=== PATIENT | female | born 1985 | race African-American/Black ===

== ENCOUNTER 2016-07-22 19:58 | Emergency (ER) | payer OTHER ==
[~2016-07-22] VITALS: Ht 160 cm; Wt 68.0 kg
[2016-07-22 20:30] VITALS: BP 120/76
--- NOTE | 2016-07-22 20:48 | PHYS DOC ---
Adult General Chief Complaint Chief Complaint: FOOT INJURY PAIN HPI HPI Patient is a 30 year old female since emergency department stating that she was playing kick ball tonight when she went to run dip in the concrete. She states that she caught her foot in the dental and fell. She is complaining of foot pain and ankle pain and discomfort. She states that she has increased pain with trying to bear weight. She denies any numbness or tingling into the toes. She states that she has not taken anything for pain and discomfort. Review of Systems Review of Systems Constitutional: Denies fever or chills [] Eyes: Denies change in visual acuity, redness, or eye pain [] HENT: Denies nasal congestion or sore throat [] Respiratory: Denies cough or shortness of breath [] Cardiovascular: No additional information not addressed in HPI [] GI: Denies abdominal pain, nausea, vomiting, bloody stools or diarrhea [] : Denies dysuria or hematuria [] Musculoskeletal: Denies back pain. C/o right ankle/foot pain Integument: Denies rash or skin lesions [] Neurologic: Denies headache, focal weakness or sensory changes [] Endocrine: Denies polyuria or polydipsia [] Physical Exam Physical Exam Constitutional: Well developed, well nourished, no acute distress, non-toxic appearance. [] HENT: Normocephalic, atraumatic, bilateral external ears normal, oropharynx moist, no oral exudates, nose normal. [] Eyes: PERRLA, EOMI, conjunctiva normal, no discharge. [] Neck: Normal range of motion, no tenderness, supple, no stridor. [] Cardiovascular:Heart rate regular rhythm Lungs & Thorax: no respiratory distress Skin: Warm, dry, no erythema, no rash. [] Back: No tenderness Extremities: Right foot and ankle tenderness, no cyanosis, no clubbing, ROM intact, no edema. Peripheral pulses 2+. Cap refill brisk less than 2 seconds. Patient with good sensation to the toes. Neurologic: Alert and oriented X 3, normal motor function, normal sensory function, no focal deficits noted. [] Psychologic: Affect normal, judgement normal, mood normal. [] EKG EKG [] Radiology/Procedures Radiology/Procedures [] Course & Med Decision Making Course & Med Decision Making Pertinent Labs and Imaging studies reviewed. (See chart for details) X-rays negative per Dr. Cavanaugh. Patient will be placed in Dmitri wrap and an Air- Stirrup splint with recommendations to wear the Dmitri wrap for the next 5-7 days in the Air-Stirrup splint for the next 7-10 days. Recommended ice packs on 20 minutes off 20 minutes several times a day elevation as much as possible. Patient will be provided with orthopedic name and number to follow up with. Signs symptoms to return back to emergency department been provided. Patient agrees with discharge instructions treatment regimens and follow-up recommendations. [] Dragon Disclaimer Dragon Disclaimer This electronic medical record was generated, in whole or in part, using a voice recognition dictation system. Departure Departure Impression: Primary Impression: Right ankle sprain Additional Impression: Right foot sprain Disposition: 01 HOME, SELF-CARE Condition: STABLE Referrals: NON,STAFF (PCP) ELIEZER HWANG MD Patient Instructions: Ankle Sprain, [id number], Foot Sprain-Brief Additional Instructions: Activity as tolerated. Dmitri wrap for the next 5-7 days. Air-Stirrup splint for the next 7-10 days. Ice packs on 20 minutes off 20 minutes times a day. Ibuprofen every 8 hours with food stop taking few develop upset stomach. Tylenol may also be taken to help with pain and discomfort. Elevation as much as possible. Follow-up with orthopedic in the next week. Return back to emergency prior signs symptoms of become worse. Problem Qualifiers EMMETT LORENZO APRN Jul 22, 2016 20:48
--- NOTE | 2016-07-23 08:00 | RAD ---
EXAM: 1. Right ankle 3 views. 2. Right foot 3 views. HISTORY: Fall with right foot/ankle pain. COMPARISON: None. FINDINGS: No fractures are identified throughout. The joint spaces and alignment of the ankle mortise are maintained. Joint spaces and alignment throughout the right foot are also maintained. IMPRESSION: 1. No fracture or malalignment.
== END 2016-07-22 20:55 | disposition home or self-care (01) ==
LOC: ER 19:58
DX: S93.601A Unspecified sprain of right foot, initial encounter (principal); S93.401A Sprain of unspecified ligament of right ankle, initial encounter; W19.XXXA Unspecified fall, initial encounter; Y93.6A Activity, physical games generally associated with school recess, summer camp and children; Y92.89 Other specified places as the place of occurrence of the external cause; Y99.8 Other external cause status
CPT/HCPCS: 29515; 73610; 73630; 99284-25

== ENCOUNTER 2016-08-22 18:15 | Emergency (ER) | payer OTHER ==
[2016-08-22 18:57] LABS: BILIRUBIN,URINE NEGATIVE (NEG); GLUCOSE,URINE NEGATIVE (NEG); NITRITE,URINE NEGATIVE (NEG); PROTEIN,URINE NEGATIVE (NEG-TRACE)
--- NOTE | 2016-08-22 19:03 | PHYS DOC ---
Past Medical History Past Medical History: No Pertinent History Additional Past Medical Histor: constipation Past Surgical History: Alcohol Use: Occasionally Drug Use: None Adult General Chief Complaint Chief Complaint: CONTISPATION [facility] HPI Patient is a 30 year old female who presents with 1 day history of some intermittent left lower quadrant pain that she describes as sharp she's had this on and off the past several weeks denies any nausea vomiting or diarrhea no dysuria or frequency no vaginal bleeding or discharge. LMP was 1 week ago. Patient reports chronic constipation and her last bowel movement was yesterday. Appetite is good. no prior surgeries Review of Systems Review of Systems Constitutional: Denies fever or chills [] Eyes: Denies change in visual acuity, redness, or eye pain [] HENT: Denies nasal congestion or sore throat [] Respiratory: Denies cough or shortness of breath [] Cardiovascular: No additional information not addressed in HPI [] GI: Denies abdominal pain, nausea, vomiting, bloody stools or diarrhea [] : Denies dysuria or hematuria [] Musculoskeletal: Denies back pain or joint pain [] Integument: Denies rash or skin lesions [] Neurologic: Denies headache, focal weakness or sensory changes [] Endocrine: Denies polyuria or polydipsia [] Allergies Allergies Allergies Coded Allergies Type Severity Reaction Last Updated Verified No Known Drug Allergies 07/22/16 No Physical Exam Physical Exam Constitutional: Well developed, well nourished, no acute distress, non-toxic appearance. [] HENT: Normocephalic, atraumatic, bilateral external ears normal, oropharynx moist, no oral exudates, nose normal. [] Eyes: PERRLA, EOMI, conjunctiva normal, no discharge. [] Neck: Normal range of motion, no tenderness, supple, no stridor. [] Cardiovascular:Heart rate regular rhythm, no murmur [] Lungs & Thorax: Bilateral breath sounds clear to auscultation [] Abdomen: Bowel sounds normal, soft, no tenderness, no masses, no pulsatile masses. Very questionable left lower quadrant tenderness does not appear to be adnexal [] Skin: Warm, dry, no erythema, no rash. [] Back: No tenderness, no CVA tenderness. [] Extremities: No tenderness, no cyanosis, no clubbing, ROM intact, no edema. [] Neurologic: Alert and oriented X 3, normal motor function, normal sensory function, no focal deficits noted. [] Psychologic: Affect normal, judgement normal, mood normal. [] Current Patient Data Vital Signs Vital Signs Date Time Temp Pulse Resp B/P (MAP) Pulse Ox O2 Delivery O2 Flow Rate FiO2 08/22/16 19:25 72 18 128/85 (99) 100 Room Air 08/22/16 18:25 97.8 97.8 Lab Values Laboratory Tests Test 08/22/16 17:36 08/22/16 18:25 POC Urine HCG, Qualitative Hcg negative (Negative) Urine Collection Type Unknown Urine Color Yellow Urine Clarity Clear Urine pH 6.0 Urine Specific [place] 1.020 Urine Protein Negative mg/dL (NEG-TRACE) Urine Glucose (UA) Negative mg/dL (NEG) Urine Ketones (Stick) Negative mg/dL (NEG) Urine Blood Trace (NEG) Urine Nitrite Negative (NEG) Urine Bilirubin Negative (NEG) Urine Urobilinogen Dipstick 1.0 mg/dL (0.2 mg/dL) Urine Leukocyte Esterase Negative (NEG) Urine RBC Occ /HPF (0-2) Urine WBC 1-4 /HPF (0-4) Urine Squamous Epithelial Cells Mod /LPF Urine Bacteria Many /HPF (0-FEW) Urine Mucus Mod /LPF EKG EKG [] Radiology/Procedures Radiology/Procedures KUB: Nonspecific bowel gas pattern and there is some stool retained in the descending colon my interpretation my review the images Pelvic sono: [Per radiology report there is a complex cyst on the right ovary but nothing on the left with good blood flow to both ovaries.] Course & Med Decision Making Course & Med Decision Making Pertinent Labs and Imaging studies reviewed. (See chart for details) Patient was fairly insistent on obtaining a pelvic sonogram to evaluate her left ovary. She has a fairly benign exam I suspect most of this pain is related to constipation. We will obtain a UA and a urine as well as a KUB. KUB unremarkable. UA consistent with possible UTI [] Dragon Disclaimer Dragon Disclaimer This electronic medical record was generated, in whole or in part, using a voice recognition dictation system. Departure Departure Impression: Primary Impression: Urinary tract infection Additional Impressions: Abdominal pain Right ovarian cyst Constipation Disposition: 01 HOME, SELF-CARE Condition: STABLE Referrals: ANDIE JOHNSON MD (PCP) Patient Instructions: Constipation, Adult, [id number], Ovarian Cyst, Easy-to- Read, Urinary Tract Infection, [id number] Scripts Nitrofurantoin Monohyd/M-Cryst (MACROBID 100 MG CAPSULE) 100 Mg Capsule 1 CAP PO BID, #14 CAP Prov: REGINALDO GARCIA MD 08/22/16 Polyethylene Glycol 3350 (MIRALAX) 17 Gm Powd.pack 1 PACKET PO DAILY for CONSTIPATION, #30 PACKET 3 Refills Prov: REGINALDO GARCIA MD 08/22/16 Problem Qualifiers REGINALDO AGRCIA MD Aug 22, 2016 19:03
[2016-08-22 19:05] LABS: BACTERIA,URINE MANY /HPF (0-FEW); RBC,URINE OCC /HPF (0-2)
[2016-08-22 19:06] LABS: SQUAMOUS EPITHELIAL CELL,UR MOD /LPF
[2016-08-22 19:25] VITALS: BP 128/85
--- NOTE | 2016-08-22 20:04 | RAD ---
Pelvic ultrasound History: Intermittent left lower quadrant pain for one day. Comparison: None. Technique: Transabdominal ultrasound was performed to evaluate the uterine fundus. Endovaginal imaging was performed to evaluate optimally the endometrial canal and lower uterine segment. TRANSABDOMINAL IMAGING Findings: Uterus is suboptimally visualized. Right ovary measures 3.4 x 4.5 x 3.2 cm and demonstrates 3.1 cm complex cystic lesion. The left ovary is not visualized. No significant free fluid is seen. ENDOVAGINAL IMAGING Findings: The uterus measures 9.3 cm in length. A uterine fundus demonstrates hypoechoic mass measuring 1.0 cm, compatible with intramural leiomyoma. Endometrium measures 6 mm. Nabothian cyst is seen. Right ovary measures 3.9 x 4.7 x 4.1 cm and demonstrates a complex cystic lesion which measures 3.6 cm. This cystic lesion demonstrate some internal septations as well as some areas of intermittent, somewhat nodular echogenicity. The left ovary measures 1.8 x 3.2 x 2.0 cm and demonstrates a few physiologic follicles. No adnexal masses are identified. No significant free fluid is identified within the pelvis. Both ovaries demonstrate normal vascular flow upon Doppler interrogation and are without evidence of torsion. Impression: 1. Right ovary demonstrates a complex cystic lesion measuring 3.6 cm. This probably represents hemorrhagic cyst. Follow-up pelvic ultrasound could be performed in 12 weeks to ensure resolution. 2. Small leiomyoma. 3. No evidence of ovarian torsion. Electronically signed by: Chidi Cole MD (08/22/2016 8:01 PM) [id number]
[2016-08-22] MEDS ORDERED: NITR100C62 PO (20:12)
[2016-08-22] MEDS ORDERED: POLY17PO29 PO (20:12)
--- NOTE | 2016-08-23 08:03 | RAD ---
Abdominal radiograph 08/22/2016 at 1904 hours Indication: Left lower quadrant abdominal pain. Comparison: None available Technique: Single supine portable view of the abdomen is provided. Findings: There are no dilated loops of small or large bowel. Gas is identified within the rectum. Small amount stool burden noted. Supine technique limits evaluation for free intraperitoneal air. Osseous structures appear normal. Phleboliths are identified in the pelvis. Impression: Nonobstructive bowel gas pattern. Small stool burden.
== END 2016-08-22 20:15 | disposition home or self-care (01) ==
LOC: ER 18:15
DX: N39.0 Urinary tract infection, site not specified (principal); N83.201 Unspecified ovarian cyst, right side; K59.09 Other constipation; Z98.890 Other specified postprocedural states
CPT/HCPCS: 74000; 76830; 76856; 81001; 81025; 87086; 99285-25

== ENCOUNTER → 2017-05-10 | Outpatient (CLI) | payer OTHER ==
[2017-05-10 08:42] LABS: ADD MAN DIFF? NO
[2017-05-10 08:48] LABS: BASO % 1 % (0-3); EOS % 1 % (0-3); HEMATOCRIT 40.5 % (36.0-47.0); HEMOGLOBIN 13.5 g/dL (12.0-15.5); LYMPH # 1.3 x10^3/uL (1.0-4.8); LYMPH % 33 % (24-48); MEAN CORPUSCULAR HEMOGLOBIN 29 pg (25-35); MEAN CORPUSCULAR HGB CONC 33 g/dL (31-37); MEAN CORPUSCULAR VOLUME 87 fL (79-100); MONO # 0.2 x10^3/uL (0.0-1.1); MONO % 6 % (0-9); NEUT # 2.2 x10^3uL (1.8-7.7); NEUT % 59 % (31-73); PLATELET COUNT 235 x10^3/uL (140-400); RED BLOOD COUNT 4.65 x10^6/uL (3.50-5.40); RED CELL DISTRIBUTION WIDTH 13.6 % (11.5-14.5); WHITE BLOOD COUNT 3.8 x10^3/uL (4.0-11.0)
[2017-05-10 09:02] LABS: ALBUMIN 3.9 g/dL (3.4-5.0); ALK PHOS 81 U/L (46-116); ALT (SGPT) 21 U/L (14-59); ANION GAP 8 (6-14); AST (SGOT) 16 U/L (15-37); BLOOD UREA NITROGEN 13 mg/dL (7-20); BUN/CREATININE RATIO 16 (6-20); CALCIUM 9.3 mg/dL (8.5-10.1); CARBON DIOXIDE 29 mmol/L (21-32); CHLORIDE 101 mmol/L (98-107); CHOLESTEROL 236 mg/dL (0-200); CREATININE 0.8 mg/dL (0.6-1.0); GFR 100.6; GLUCOSE 90 mg/dL (70-99); HDLC 71 mg/dL (40-60); LDLC 150 mg/dL (0-100); NON-HDL CHOLESTEROL 165 mg/dL (0-129); POTASSIUM 3.8 mmol/L (3.5-5.1); SODIUM 138 mmol/L (136-145); TOTAL BILIRUBIN 0.4 mg/dL (0.2-1.0); TRIGLYCERIDES 76 mg/dL (0-150); VLDLC 15 mg/dL (0-40)
[2017-05-10 09:04] LABS: CHOLESTEROL/HDL RATIO 3.3
[2017-05-10 09:15] LABS: THYROID STIM HORMONE (TSH) 0.745 uIU/mL (0.358-3.74)
== END | disposition home or self-care (01) ==
LOC: LAB 08:17
DX: Z01.411 Encounter for gynecological examination (general) (routine) with abnormal findings (principal); E55.9 Vitamin D deficiency, unspecified
CPT/HCPCS: 36415; 80053; 80061; 82306; 84443; 85025